=== PATIENT | male | born 1965 | race Caucasian/White ===

== ENCOUNTER 2023-09-14 17:50 | Emergency (ER) | payer MEDICAID ==
[~2023-09-14] VITALS: Ht 180.3 cm; Wt 104.0 kg
[2023-09-14 18:04] VITALS: O2SAT 100
[2023-09-14] MEDS ORDERED: CLOPIDOGREL 75MG TABLET PO ONE (19:15)
[2023-09-14 20:00] VITALS: TEMP 98.5
[2023-09-14 20:11] LABS: BASOPHILS % 0.3 % (0.0-2.0); EOSINOPHILS % 0.4 % (0.0-5.0); HEMATOCRIT. 45.6 % (42.0-52.0); HEMOGLOBIN. 15.4 g/dL (14.0-18.0); LYMPHOCYTES % 36.5 % (20.0-50.0); MEAN CORPUSCULAR HEMOGLOBIN 29.5 pg (28.0-32.0); MEAN CORPUSCULAR HGB CONC 33.8 g/dL (31.0-37.0); MEAN CORPUSCULAR VOLUME 87.4 fL (80.0-94.0); MONOCYTES % 7.6 % (2.0-8.0); NEUTROPHILS % 55.2 % (40.0-76.0); PLATELET 83 x1000/uL (130-400); RED BLOOD CELL COUNT 5.22 mill/uL (4.7-6.1); RED CELL DISTRIBUTION WIDTH 13.8 % (11.6-14.6); WHITE BLOOD COUNT 9.1 x1000/uL (4.5-11.0)
[2023-09-14 20:24] LABS: ALANINE AMINOTRANSFERASE 50 IU/L (10-49); ALBUMIN 4.1 g/dL (3.2-4.8); ASPARTATE AMINOTRANSFERASE 23 IU/L (<34); CALCIUM 9.3 mg/dL (8.7-10.4); CARBON DIOXIDE 26 mEq/L (21-32); CHLORIDE 98 mEq/L (98-107); CREATININE 1.1 mg/dL (0.6-1.3); GLUCOSE 220 mg/dL (70-105); POTASSIUM 3.1 mEq/L (3.5-5.1); PROTEIN TOTAL 7.3 g/dL (6.0-8.3); SODIUM 133 mEq/L (136-145); TROPONIN I HIGH SENSITIVITY 5 ng/L (3.0-53); UREA NITROGEN BLOOD 17 mg/dL (9-23)
[2023-09-14 21:47] LABS: TROPONIN I HIGH SENSITIVITY 6 ng/L (3.0-53)
[2023-09-15 05:32] VITALS: BP 146/90; PULSE 92; RESP 17
== END 2023-09-15 05:48 | disposition short-term general hospital (02) ==
LOC: ER 17:50 → EDBEDREQ 19:22 → ER 09-15 05:48
DX: I20.0 Unstable angina (principal); I10 Essential (primary) hypertension; E11.9 Type 2 diabetes mellitus without complications; Z88.8 Allergy status to other drugs, medicaments and biological substances
CPT/HCPCS: 80053; 82962; 83880; 85025; 84484; 36415; 71045; 93005; 99285; Z7610 ×2